=== PATIENT | male | born 1945 | race African-American/Black ===

== ENCOUNTER 2022-01-31 12:03 | Emergency (ER) | payer OTHER ==
[2022-02-01] MEDS ORDERED: TERA2CAP45 PO (16:16)
[2022-02-01] MEDS ORDERED: ATOR40TA52 PO (16:16)
[2022-02-01] MEDS ORDERED: WARF5TAB71 PO (16:16)
[2022-02-01] MEDS ORDERED: FAMO40TA7 PO (16:16)
[2022-02-01] MEDS ORDERED: BUME1TAB3 PO (16:16)
[2022-02-01] MEDS ORDERED: LOS25T PO (16:16)
[2022-02-01] MEDS ORDERED: METO-289 PO (16:16)
== END 2022-01-31 12:13 | disposition home or self-care (01) ==
LOC: EDSEX → ER 12:03
DX: R41.82 Altered mental status, unspecified (principal); E11.9 Type 2 diabetes mellitus without complications; I10 Essential (primary) hypertension

== ENCOUNTER 2022-01-31 12:28 | Inpatient (IN) | payer OTHER ==
[~2022-01-31] VITALS: Ht 182.9 cm; Wt 113.6 kg
[2022-01-31] MEDS ORDERED: SODIUM CHLORIDE 0.9% 1,000 ML IV ONE ×3 (12:45→17:15)
[2022-01-31] MEDS ORDERED: ACETAMINOPHEN 650 MG RECT SUPP PR ONE (12:45)
[2022-01-31] MEDS ORDERED: ACETAMINOPHEN 325 MG RECT SUPP PR ONE ×2 (13:15→15:30)
[2022-01-31 13:24] LABS: Basophils # (auto) 0 10 ^3/uL (0-0.2); Eosinophils # (auto) 0 10 ^3/uL (0-0.8); Hemoglobin 10.1 g/dL (12.2-16.2); Lymphocytes # (auto) 0.2 10 ^3/uL (0.4-5.4); Neutrophils # (auto) 9.7 10 ^3/uL (1.6-8.6)
[2022-01-31 13:27] LABS: Basophils % (auto) 0.1 % (0.0-2.0); Hematocrit 31.3 % (36.0-46.0); Lymphocytes % (auto) 1.7 % (10.0-50.0); Mean Corpuscular Hemoglobin 26.3 pg (28.0-32.0); Mean Corpuscular Hgb Conc. 32.2 g/dL (32.0-36.0); Mean Corpuscular Volume 81.7 fL (80.0-100.0); Monocytes # (auto) 0.3 10 ^3/uL (0-1.3); Monocytes % (auto) 2.6 % (0.0-12.0); Neutrophils % (auto) 95.6 % (37.0-80.0); Red Blood Cells 3.83 10^6/uL (4.0-5.20); Red Cell Distribution Width 15.4 % (11.8-14.3); White Blood Cell 10.2 10^3/uL (4.4-10.8)
[2022-01-31 13:38] LABS: INR 3.58 (0.9-1.15); Partial Thromboplastin Time 54.3 sec (24.6-33.4)
[2022-01-31 13:42] LABS: Albumin 2.5 g/dL (3.4-5.0); Calcium 8.4 mg/dL (8.5-10.1); Potassium 3.5 mmol/L (3.5-5.1)
[2022-01-31 13:44] LABS: BUN/Creatinine Ratio 11.3
[2022-01-31 13:52] LABS: Bilirubin, Total 0.9 mg/dL (0.2-1.0); Total Protein 6.5 g/dL (6.4-8.2)
[2022-01-31] MEDS ORDERED: LIDOCAINE 4MG/ML IV SOLN 500 ML IV SCH (14:15)
[2022-01-31] MEDS ORDERED: CLOPIDOGREL BISULFATE 75 MG TAB PO ONE (14:30)
[2022-01-31] MEDS ORDERED: LORazepam 2MG/ML-1ML VIAL IV PRN (19:30)
[2022-01-31 19:37] LABS: Urine Amorphous Crystal FEW /hpf (None Seen); Urine Bacteria FEW /hpf (None Seen); Urine Blood Negative /uL (Negative); Urine Mucus FEW (None Seen); Urine Specific Gravity 1.015 (1.001-1.035); Urine WBC 1 /hpf (0 - 3)
[2022-01-31 20:00] VITALS: BP 118/63
[2022-01-31 20:51] LABS: Cholesterol 70 mg/dL (< 200)
[2022-01-31 20:54] LABS: HDL Cholesterol 36 mg/dL (40-59); LDL Cholesterol 30 mg/dL (< 100); Triglycerides 59 mg/dL (< 150)
[2022-01-31] MEDS ORDERED: ONDANSETRON HCL 4 MG/2 ML VIAL IV PRN (21:30)
[2022-01-31] MEDS ORDERED: MORPHINE SULFATE INJ 2 MG/ml SYRG IV PRN (21:30)
[2022-01-31] MEDS ORDERED: NITROGLYCERIN 0.4 MG SL TAB SL PRN (21:30)
[2022-01-31] MEDS: SODIUM CHLORIDE 0.9% 1,000 ML IV SCH (22:08)
[2022-02-01 05:09] LABS: Basophils # (auto) 0 10 ^3/uL (0-0.2); Eosinophils # (auto) 0.1 10 ^3/uL (0-0.8); Eosinophils % (auto) 0.5 % (0.0-7.0); Lymphocytes # (auto) 0.8 10 ^3/uL (0.4-5.4); Monocytes # (auto) 0.9 10 ^3/uL (0-1.3); Neutrophils # (auto) 9.9 10 ^3/uL (1.6-8.6); White Blood Cell 11.6 10^3/uL (4.4-10.8)
[2022-02-01 05:12] LABS: Basophils % (auto) 0.1 % (0.0-2.0); Hematocrit 30.8 % (41.0-53.0); Hemoglobin 9.9 g/dL (13.5-17.5); Lymphocytes % (auto) 6.7 % (10.0-50.0); Mean Corpuscular Hemoglobin 26.5 pg (28.0-32.0); Mean Corpuscular Hgb Conc. 32.1 g/dL (32.0-36.0); Mean Corpuscular Volume 82.6 fL (80.0-100.0); Monocytes % (auto) 7.7 % (0.0-12.0); Red Blood Cells 3.72 10^6/uL (4.5-5.90); Red Cell Distribution Width 15.7 % (11.8-14.3)
[2022-02-01 05:21] LABS: Albumin 2.4 g/dL (3.4-5.0); BUN/Creatinine Ratio 15.7; Calcium 8.8 mg/dL (8.5-10.1); Potassium 4.4 mmol/L (3.5-5.1)
[2022-02-01 05:24] LABS: Bilirubin, Total 0.5 mg/dL (0.2-1.0); Total Protein 6.3 g/dL (6.4-8.2)
[2022-02-01] MEDS: PANTOPRAZOLE 40 MG/10 ML VIAL INJ IV SCH (09:49)
[2022-02-01] MEDS ORDERED: ENOXAPARIN SOD 40 MG/0.4 ML SYRINGE SC SCH (10:00)
[2022-02-01] MEDS: SODIUM CHLORIDE 0.9% 1,000 ML IV SCH (10:50)
[2022-02-01] MEDS ORDERED: FUROSEMIDE 20 MG/2 ML VIAL IV ONE (13:45)
[2022-02-01] MEDS ORDERED: ASPirin 81 mg TAB PO ONE (13:45)
[2022-02-01] MEDS ORDERED: LISINOPRIL 5 MG TAB PO ONE (13:45)
[2022-02-01] MEDS ORDERED: METOPROLOL TARTRATE 25 MG TAB PO ONE (13:45)
[2022-02-01] MEDS ORDERED: AMIODARONE HCL 200 MG TAB PO ONE (13:45)
[2022-02-01 16:00] VITALS: BP 113/77
[2022-02-01] MEDS ORDERED: METO-289 PO (16:16)
[2022-02-01] MEDS ORDERED: FAMO40TA7 PO (16:16)
[2022-02-01] MEDS ORDERED: ATOR40TA52 PO (16:16)
[2022-02-01] MEDS ORDERED: TERA2CAP45 PO (16:16)
[2022-02-01] MEDS ORDERED: LOS25T PO (16:16)
[2022-02-01] MEDS ORDERED: BUME1TAB3 PO (16:16)
[2022-02-01] MEDS ORDERED: WARF5TAB71 PO (16:16)
[2022-02-01 16:45] VITALS: BP 141/71
[2022-02-01] MEDS ORDERED: cefTRIAXone 1GM/50ML D5W 50 ML IV ONE (17:30)
[2022-02-01] MEDS ORDERED: VANCOMYCIN PER PHARMACY 0 MG IV SCH (17:30)
[2022-02-01] MEDS: FUROSEMIDE 20 MG/2 ML VIAL IV SCH (17:41)
[2022-02-01] MEDS: ACETAMINOPHEN 325 MG TAB PO PRN (18:13)
[2022-02-01] MEDS: VANCOMYCIN 1GM/250ML 250 ML IV SCH (18:49)
[2022-02-01 20:00] VITALS: BP 126/67
[2022-02-01] MEDS: AMIODARONE HCL 200 MG TAB PO SCH (21:44)
[2022-02-01] MEDS: METOPROLOL TARTRATE 25 MG TAB PO SCH (21:45)
[2022-02-01 22:00] VITALS: BP 145/73
[2022-02-02 00:41] LABS: INR 5.2 (0.9-1.15)
[2022-02-02 05:00] VITALS: BP 143/80
[2022-02-02] MEDS: FUROSEMIDE 20 MG/2 ML VIAL IV SCH ×2 (05:51→17:32)
[2022-02-02] MEDS ORDERED: METOPROLOL TARTRATE 1MG/1ML-5ML VIAL IV ONE (08:45)
[2022-02-02] MEDS ORDERED: DIGOXIN (250MCG/ML) 2 ML AMPULE IV ONE (08:45)
[2022-02-02 09:00] VITALS: BP 144/83
[2022-02-02] MEDS: cefTRIAXone 1GM/50ML D5W 50 ML IV SCH (09:00)
[2022-02-02] MEDS ORDERED: ASPirin 81 mg TAB PO SCH (10:00)
[2022-02-02 11:04] LABS: Eosinophils # (auto) 0 10 ^3/uL (0-0.8); Eosinophils % (auto) 0.4 % (0.0-7.0); Hemoglobin 9.5 g/dL (13.5-17.5); Mean Corpuscular Volume 82.5 fL (80.0-100.0); Neutrophils # (auto) 10.7 10 ^3/uL (1.6-8.6); White Blood Cell 12.5 10^3/uL (4.4-10.8)
[2022-02-02] MEDS: PANTOPRAZOLE 40 MG/10 ML VIAL INJ IV SCH (11:07)
[2022-02-02 11:08] LABS: Basophils # (auto) 0 10 ^3/uL (0-0.2); Basophils % (auto) 0.1 % (0.0-2.0); Lymphocytes # (auto) 0.8 10 ^3/uL (0.4-5.4); Lymphocytes % (auto) 6.4 % (10.0-50.0); Mean Corpuscular Hemoglobin 26.2 pg (28.0-32.0); Mean Corpuscular Hgb Conc. 31.7 g/dL (32.0-36.0); Monocytes % (auto) 7.8 % (0.0-12.0); Neutrophils % (auto) 85.3 % (37.0-80.0); Nucleated Red Blood Cells % 0.1 %; Red Blood Cells 3.64 10^6/uL (4.5-5.90); Red Cell Distribution Width 16.1 % (11.8-14.3)
[2022-02-02] MEDS: AMIODARONE HCL 200 MG TAB PO SCH ×2 (11:08→21:29)
[2022-02-02] MEDS: METOPROLOL TARTRATE 25 MG TAB PO SCH ×2 (11:08→21:28)
[2022-02-02] MEDS: LISINOPRIL 5 MG TAB PO SCH (11:09)
[2022-02-02] MEDS: VANCOMYCIN 1GM/250ML 250 ML IV SCH (12:26)
[2022-02-02 13:00] VITALS: BP 150/85
[2022-02-02] MEDS: ACETAMINOPHEN 325 MG TAB PO PRN (14:38)
[2022-02-02 17:00] VITALS: BP 138/69
[2022-02-02] MEDS ORDERED: HYDROcodone-ACET 5/325MG TAB PO PRN (17:30)
[2022-02-02] MEDS: HYDROcodone-ACET 5/325MG TAB PO PRN (17:51)
[2022-02-02 20:00] VITALS: BP 147/68
[2022-02-02 22:00] VITALS: BP 147/68
[2022-02-02 23:23] LABS: Basophils # (auto) 0 10 ^3/uL (0-0.2); Basophils % (auto) 0.2 % (0.0-2.0); Eosinophils # (auto) 0 10 ^3/uL (0-0.8); Eosinophils % (auto) 0.2 % (0.0-7.0); Hematocrit 31.2 % (41.0-53.0); Hemoglobin 9.7 g/dL (13.5-17.5); Lymphocytes % (auto) 6.2 % (10.0-50.0); Mean Corpuscular Hemoglobin 25.4 pg (28.0-32.0); Mean Corpuscular Hgb Conc. 31.1 g/dL (32.0-36.0); Mean Corpuscular Volume 81.6 fL (80.0-100.0); Monocytes # (auto) 1.3 10 ^3/uL (0-1.3); Monocytes % (auto) 8.4 % (0.0-12.0); Neutrophils # (auto) 13.3 10 ^3/uL (1.6-8.6); Red Blood Cells 3.83 10^6/uL (4.5-5.90); Red Cell Distribution Width 15.8 % (11.8-14.3); White Blood Cell 15.7 10^3/uL (4.4-10.8)
[2022-02-03 05:00] VITALS: BP_SYST 167; BP_SYST 170; BP_DIAS 73; BP_DIAS 74
[2022-02-03] MEDS: VANCOMYCIN 1GM/250ML 250 ML IV SCH (05:46)
[2022-02-03 07:02] LABS: Albumin 2.2 g/dL (3.4-5.0); Calcium 8.8 mg/dL (8.5-10.1); Potassium 3.4 mmol/L (3.5-5.1)
[2022-02-03 07:05] LABS: BUN/Creatinine Ratio 14.6; Bilirubin, Total 0.8 mg/dL (0.2-1.0); Total Protein 6.7 g/dL (6.4-8.2)
[2022-02-03] MEDS: cefTRIAXone 1GM/50ML D5W 50 ML IV SCH (09:31)
[2022-02-03 09:37] VITALS: BP 143/70
[2022-02-03] MEDS: PANTOPRAZOLE 40 MG/10 ML VIAL INJ IV SCH (10:05)
[2022-02-03] MEDS: METOPROLOL TARTRATE 25 MG TAB PO SCH ×2 (10:06→22:07)
[2022-02-03] MEDS: AMIODARONE HCL 200 MG TAB PO SCH ×2 (10:06→22:07)
[2022-02-03] MEDS: LISINOPRIL 5 MG TAB PO SCH (10:07)
[2022-02-03 13:24] VITALS: BP 128/74
[2022-02-03 15:23] LABS: INR 3.32 (0.9-1.15)
[2022-02-03] MEDS: HYDROcodone-ACET 5/325MG TAB PO PRN (15:24)
[2022-02-03 16:53] VITALS: BP 135/68
[2022-02-03 22:00] VITALS: BP 122/66
[2022-02-04] MEDS: VANCOMYCIN 1GM/250ML 250 ML IV SCH (00:26)
[2022-02-04 05:00] VITALS: BP 165/76
[2022-02-04 06:58] LABS: INR 2.99 (0.9-1.15)
[2022-02-04] MEDS: cefTRIAXone 1GM/50ML D5W 50 ML IV SCH (08:35)
[2022-02-04 09:00] VITALS: BP 154/66
[2022-02-04] MEDS: AMIODARONE HCL 200 MG TAB PO SCH ×2 (09:53→22:01)
[2022-02-04] MEDS: PANTOPRAZOLE 40 MG/10 ML VIAL INJ IV SCH (09:53)
[2022-02-04] MEDS: METOPROLOL TARTRATE 25 MG TAB PO SCH ×2 (09:54→22:02)
[2022-02-04] MEDS: LISINOPRIL 5 MG TAB PO SCH (09:54)
[2022-02-04] MEDS: HYDROcodone-ACET 5/325MG TAB PO PRN ×2 (09:55→17:35)
[2022-02-04 11:18] LABS: Basophils # (auto) 0.1 10 ^3/uL (0-0.2); Eosinophils # (auto) 0.2 10 ^3/uL (0-0.8); Lymphocytes # (auto) 1.1 10 ^3/uL (0.4-5.4)
[2022-02-04 11:20] LABS: Basophils % (auto) 0.7 % (0.0-2.0); Eosinophils % (auto) 1.8 % (0.0-7.0); Hematocrit 31.4 % (41.0-53.0); Hemoglobin 9.9 g/dL (13.5-17.5); Lymphocytes % (auto) 10.8 % (10.0-50.0); Mean Corpuscular Hemoglobin 25.8 pg (28.0-32.0); Mean Corpuscular Hgb Conc. 31.6 g/dL (32.0-36.0); Mean Corpuscular Volume 81.7 fL (80.0-100.0); Monocytes % (auto) 9.8 % (0.0-12.0); Neutrophils # (auto) 7.9 10 ^3/uL (1.6-8.6); Neutrophils % (auto) 76.9 % (37.0-80.0); Red Blood Cells 3.84 10^6/uL (4.5-5.90); Red Cell Distribution Width 15.8 % (11.8-14.3); White Blood Cell 10.3 10^3/uL (4.4-10.8)
[2022-02-04 11:35] LABS: Albumin 2.3 g/dL (3.4-5.0); Calcium 9.1 mg/dL (8.5-10.1); Potassium 3.5 mmol/L (3.5-5.1)
[2022-02-04 11:40] LABS: BUN/Creatinine Ratio 13.7; Bilirubin, Total 0.5 mg/dL (0.2-1.0); Total Protein 6.8 g/dL (6.4-8.2)
[2022-02-04 13:00] VITALS: BP 111/54
[2022-02-04] MEDS ORDERED: VANCOMYCIN 1GM/250ML 250 ML IV SCH (16:00)
[2022-02-04 17:00] VITALS: BP 155/61
[2022-02-04] MEDS: AMPICILLIN INJ 1 GM in SODIUM CHL 0.9% 50 ML IV SCH ×2 (18:00→23:31)
[2022-02-04 22:29] VITALS: BP 145/65
[2022-02-05] MEDS: AMPICILLIN INJ 1 GM in SODIUM CHL 0.9% 50 ML IV SCH ×4 (05:34→23:49)
[2022-02-05 05:54] VITALS: BP 147/72
[2022-02-05 09:00] VITALS: BP 146/70
[2022-02-05] MEDS: AMIODARONE HCL 200 MG TAB PO SCH ×2 (09:20→21:29)
[2022-02-05] MEDS: PANTOPRAZOLE 40 MG/10 ML VIAL INJ IV SCH (09:20)
[2022-02-05] MEDS: METOPROLOL TARTRATE 25 MG TAB PO SCH ×2 (09:21→21:30)
[2022-02-05] MEDS: LISINOPRIL 5 MG TAB PO SCH (09:21)
[2022-02-05] MEDS ORDERED: POTASSIUM CHLORIDE 40 MEQ, LIDOCAINE 1% (LOCAL ANESTH.) 4 ML in SODIUM CHL 0.9% 250 ML IV ONE (14:15)
[2022-02-05] MEDS ORDERED: ENOXAPARIN SOD 40 MG/0.4 ML SYRINGE SC ONE (14:15)
[2022-02-05 16:44] VITALS: BP 148/61
[2022-02-05] MEDS: HYDROcodone-ACET 5/325MG TAB PO PRN (21:31)
[2022-02-05 22:00] VITALS: BP 157/73
[2022-02-06 05:00] VITALS: BP 140/88
[2022-02-06] MEDS: AMPICILLIN INJ 1 GM in SODIUM CHL 0.9% 50 ML IV SCH ×3 (05:33→17:46)
[2022-02-06] MEDS: AMIODARONE HCL 200 MG TAB PO SCH ×2 (08:03→21:10)
[2022-02-06] MEDS: HYDROcodone-ACET 5/325MG TAB PO PRN (08:03)
[2022-02-06] MEDS: PANTOPRAZOLE 40 MG/10 ML VIAL INJ IV SCH (08:03)
[2022-02-06] MEDS: METOPROLOL TARTRATE 25 MG TAB PO SCH ×2 (08:04→21:11)
[2022-02-06] MEDS: LISINOPRIL 5 MG TAB PO SCH (08:04)
[2022-02-06] MEDS: ENOXAPARIN SOD 40 MG/0.4 ML SYRINGE SC SCH (08:04)
[2022-02-06 09:06] VITALS: BP 149/79
[2022-02-06] MEDS ORDERED: PHYTONADIONE (VIT K)10 MG/ML 1ML VIAL SUBCUT ONE (12:00)
[2022-02-06 12:39] VITALS: BP 121/57
[2022-02-06 12:52] LABS: INR 1.51 (0.9-1.15); Partial Thromboplastin Time 41.4 sec (24.6-33.4)
[2022-02-06 16:24] VITALS: BP 156/55
[2022-02-06] MEDS: FUROSEMIDE 20 MG/2 ML VIAL IV SCH (17:46)
[2022-02-06 21:41] VITALS: BP 155/84
[2022-02-07] VITALS (13 sets, daily range): BP systolic 112–168; BP diastolic 54–89
[2022-02-07] MEDS: AMPICILLIN INJ 1 GM in SODIUM CHL 0.9% 50 ML IV SCH ×4 (00:05→18:46)
[2022-02-07 05:24] LABS: Basophils # (auto) 0 10 ^3/uL (0-0.2); Basophils % (auto) 0.2 % (0.0-2.0); Eosinophils # (auto) 0.1 10 ^3/uL (0-0.8); Eosinophils % (auto) 1.3 % (0.0-7.0); Hematocrit 33.2 % (41.0-53.0); Hemoglobin 10.6 g/dL (13.5-17.5); Lymphocytes # (auto) 1.3 10 ^3/uL (0.4-5.4); Lymphocytes % (auto) 14.1 % (10.0-50.0); Mean Corpuscular Hemoglobin 26.1 pg (28.0-32.0); Mean Corpuscular Hgb Conc. 31.9 g/dL (32.0-36.0); Mean Corpuscular Volume 81.6 fL (80.0-100.0); Monocytes # (auto) 0.8 10 ^3/uL (0-1.3); Monocytes % (auto) 8.3 % (0.0-12.0); Neutrophils # (auto) 7.2 10 ^3/uL (1.6-8.6); Neutrophils % (auto) 76.1 % (37.0-80.0); Red Blood Cells 4.07 10^6/uL (4.5-5.90); Red Cell Distribution Width 15.7 % (11.8-14.3); White Blood Cell 9.4 10^3/uL (4.4-10.8)
[2022-02-07] MEDS: FUROSEMIDE 20 MG/2 ML VIAL IV SCH ×2 (05:33→17:52)
[2022-02-07 05:42] LABS: INR 1.3 (0.9-1.15); Partial Thromboplastin Time 34.6 sec (24.6-33.4)
[2022-02-07 05:48] LABS: Albumin 2.4 g/dL (3.4-5.0); Calcium 9.5 mg/dL (8.5-10.1); Potassium 4.1 mmol/L (3.5-5.1)
[2022-02-07 05:53] LABS: Bilirubin, Total 0.7 mg/dL (0.2-1.0); Total Protein 7.1 g/dL (6.4-8.2)
[2022-02-07] MEDS: ENOXAPARIN SOD 40 MG/0.4 ML SYRINGE SC SCH (10:00)
[2022-02-07] MEDS: PANTOPRAZOLE 40 MG/10 ML VIAL INJ IV SCH (10:36)
[2022-02-07] MEDS: AMIODARONE HCL 200 MG TAB PO SCH ×2 (10:37→21:48)
[2022-02-07] MEDS: METOPROLOL TARTRATE 25 MG TAB PO SCH ×2 (10:37→21:47)
[2022-02-07] MEDS: LISINOPRIL 5 MG TAB PO SCH (10:38)
[2022-02-07] MEDS ORDERED: ceFAZolin 1GM/50ML 100 ML IV ONE (14:50)
[2022-02-07] MEDS ORDERED: SUCCINYLCHOLINE CHLORIDE 20 MG/ML 10ML VIAL IV ONE (15:01)
[2022-02-07] MEDS ORDERED: LIDOCAINE W/ EPINEPHRINE 2% INJ 20ML VIAL ONE (15:10)
[2022-02-07] MEDS ORDERED: BUPIVACAINE 0.25% INJ 50ML VIAL ONE (15:12)
[2022-02-07] MEDS ORDERED: MIDAZOLAM DRIP 50 mg/50mL 50 ML IV SCH (16:15)
[2022-02-07] MEDS ORDERED: ONDANSETRON HCL 4 MG/2 ML VIAL IV PRN (16:15)
[2022-02-07] MEDS ORDERED: NOREPINEPHRINE 8 MG/250ML KIT 250 ML IV SCH (16:15)
[2022-02-07] MEDS ORDERED: BUPIVACAINE 0.25% INJ 50ML VIAL IJ ONE (17:09)
[2022-02-07] MEDS: HYDROmorphone HCL 2 MG/ML VL/or syr IV PRN (18:01)
[2022-02-07] MEDS ORDERED: D5W/SOD CHL 0.45%/KCL 20MEQ 1,000 ML IV ONE (21:15)
[2022-02-07] MEDS: metroNIDAZOLE 500MG/100ML 100 ML IV SCH (21:47)
[2022-02-07] MEDS ORDERED: metroNIDAZOLE 500MG/100ML 100 ML IV SCH (22:00)
[2022-02-08] VITALS (34 sets, daily range): BP systolic 102–140; BP diastolic 42–85
[2022-02-08] MEDS: HYDROmorphone HCL 2 MG/ML VL/or syr IV PRN ×3 (00:15→17:26)
[2022-02-08] MEDS: AMPICILLIN INJ 1 GM in SODIUM CHL 0.9% 50 ML IV SCH ×4 (00:16→17:25)
[2022-02-08 04:26] LABS: Basophils # (auto) 0 10 ^3/uL (0-0.2); Eosinophils # (auto) 0 10 ^3/uL (0-0.8)
[2022-02-08 04:28] LABS: Hematocrit 32.8 % (41.0-53.0); Hemoglobin 10.6 g/dL (13.5-17.5); Lymphocytes # (auto) 0.5 10 ^3/uL (0.4-5.4); Lymphocytes % (auto) 2.8 % (10.0-50.0); Mean Corpuscular Hemoglobin 26.4 pg (28.0-32.0); Mean Corpuscular Hgb Conc. 32.3 g/dL (32.0-36.0); Mean Corpuscular Volume 81.6 fL (80.0-100.0); Monocytes # (auto) 0.5 10 ^3/uL (0-1.3); Monocytes % (auto) 2.9 % (0.0-12.0); Neutrophils # (auto) 16.4 10 ^3/uL (1.6-8.6); Neutrophils % (auto) 94.3 % (37.0-80.0); Red Blood Cells 4.02 10^6/uL (4.5-5.90); Red Cell Distribution Width 15.7 % (11.8-14.3); White Blood Cell 17.4 10^3/uL (4.4-10.8)
[2022-02-08] MEDS: FUROSEMIDE 20 MG/2 ML VIAL IV SCH (05:48)
[2022-02-08] MEDS: metroNIDAZOLE 500MG/100ML 100 ML IV SCH ×2 (05:49→15:01)
[2022-02-08] MEDS ORDERED: D5W/SOD CHL 0.45%/KCL 20MEQ 1,000 ML IV SCH (07:00)
[2022-02-08] MEDS: AMIODARONE HCL 200 MG TAB PO SCH ×2 (10:40→22:00)
[2022-02-08] MEDS: PANTOPRAZOLE 40 MG/10 ML VIAL INJ IV SCH (10:40)
[2022-02-08] MEDS: METOPROLOL TARTRATE 25 MG TAB PO SCH (10:41)
[2022-02-08] MEDS: LISINOPRIL 5 MG TAB PO SCH (10:41)
[2022-02-08] MEDS: ENOXAPARIN SOD 40 MG/0.4 ML SYRINGE SC SCH (10:42)
[2022-02-08] MEDS: HYDROcodone-ACET 5/325MG TAB PO PRN (10:42)
[2022-02-08 11:20] LABS: BUN/Creatinine Ratio 18.3; Calcium 9.5 mg/dL (8.5-10.1); Potassium 5.2 mmol/L (3.5-5.1)
[2022-02-08 15:30] LABS: INR 1.27 (0.9-1.15); Partial Thromboplastin Time 35.3 sec (24.6-33.4)
[2022-02-08] MEDS ORDERED: WARFARIN SODIUM 5 MG TAB PO ONE (17:00)
[2022-02-08] MEDS ORDERED: fentaNYL CITRATE 100 MCG/2 ML VL IV ONE (22:51)
[2022-02-08] MEDS ORDERED: PHENYLEPHRINE HCL 10 MG/ML VL IV ONE (22:51)
[2022-02-08] MEDS ORDERED: METOCLOPRAMIDE HCL 5MG/ml INJ 2ml VIAL IV ONE (22:51)
[2022-02-08] MEDS ORDERED: DexAMETHasone SOD PHOS 10MG/1ML VIAL INJ IV ONE (22:51)
[2022-02-08] MEDS ORDERED: ePHEDrine SULFATE 50 MG/ML AMP IV ONE (22:51)
[2022-02-08] MEDS ORDERED: ROCURONIUM 10MG/ML 10ML VIAL IV ONE (22:51)
== END 2022-02-08 22:52 | disposition short-term general hospital (02) | DRG 853 ==
LOC: EDBD 12:28 → EDSEX 12:28 → ER 12:28 → TELE 21:29 → TELE-WESTW 02-01 16:07 → ICU WEST 02-07 17:02
PROVIDERS: ADMIT Nurse Practitioner; ATTEND Internal Medicine Nephrology
PROC: 05HB33Z Insertion of Infusion Device into Right Basilic Vein, Percutaneous Approach (ICD-10-PCS; 2022-02-01)
PROC: B54MZZA Ultrasonography of Right Upper Extremity Veins, Guidance (ICD-10-PCS; 2022-02-01)
PROC: 0FT44ZZ Resection of Gallbladder, Percutaneous Endoscopic Approach (ICD-10-PCS; principal; 2022-02-07 14:51)
DX: A41.81 Sepsis due to Enterococcus (principal); I21.A1 Myocardial infarction type 2; I50.23 Acute on chronic systolic (congestive) heart failure; K80.00 Calculus of gallbladder with acute cholecystitis without obstruction; N39.0 Urinary tract infection, site not specified; I48.20 Chronic atrial fibrillation, unspecified; N17.9 Acute kidney failure, unspecified; I13.0 Hypertensive heart and chronic kidney disease with heart failure and stage 1 through stage 4 chronic kidney disease, or unspecified chronic kidney disease; I47.2 Ventricular tachycardia; I48.92 Unspecified atrial flutter; J98.11 Atelectasis; K57.30 Diverticulosis of large intestine without perforation or abscess without bleeding; Z20.822 Contact with and (suspected) exposure to COVID-19; G47.30 Sleep apnea, unspecified; N18.9 Chronic kidney disease, unspecified; D64.9 Anemia, unspecified; E66.01 Morbid (severe) obesity due to excess calories; E11.22 Type 2 diabetes mellitus with diabetic chronic kidney disease; E78.5 Hyperlipidemia, unspecified; E86.0 Dehydration; Z68.37 Body mass index [BMI] 37.0-37.9, adult; Z87.891 Personal history of nicotine dependence; Z79.01 Long term (current) use of anticoagulants; Z86.73 Personal history of transient ischemic attack (TIA), and cerebral infarction without residual deficits
CPT/HCPCS: 36415; 70450; 70551; 71045; 74176; 76700; 78226; 80048; 80053; 80061; 80202; 80320; 81001; 82247; 82565; 83036; 83605; 83735; 83880; 84443; 84484; 85025; 85610; 85730; 86850; 86900; 86901; 87040; 87070; 87075; 87077; 87081; 87086; 87186; 87205; 93005; 93306; 93886; 93971; 95819; 96361; 96374; 97110; 97116; 97530; 99291; C9113; G0378; J0330; J0690; J0696; J1100; J2001; J2250; J2405; J3490